=== PATIENT | female | born 1990 | race Caucasian/White ===

== ENCOUNTER → 2018-08-05 | Outpatient (CLI) | payer BC ==
[2018-08-05 11:47] LABS: Urine Bacteria NONE SEEN /hpf (None Seen); Urine Blood Negative /uL (Negative); Urine Mucus FEW (None Seen); Urine Specific Gravity 1.026 (1.001-1.035); Urine WBC 7 /hpf (0 - 5)
[2018-08-05 12:09] LABS: Cholesterol 226 mg/dL (< 200); HDL Cholesterol 37 mg/dL (40-59); LDL Cholesterol 159 mg/dL (< 100); Triglycerides 142 mg/dL (< 150)
== END | disposition home or self-care (01) ==
LOC: LAB 10:11
PROVIDERS: ATTEND Internal Medicine
DX: Z00.00 Encounter for general adult medical examination without abnormal findings (principal); R63.5 Abnormal weight gain
CPT/HCPCS: 36415; 80061; 81001; 84439; 84443

== ENCOUNTER → 2020-11-18 | Outpatient (CLI) | payer BC ==
[2020-11-18 10:24] LABS: Urine WBC None Seen /hpf (0 - 5)
[2020-11-18 10:26] LABS: Basophils # (auto) 0.1 10 ^3/uL (0-0.2); Basophils % (auto) 0.8 % (0.0-2.0); Eosinophils # (auto) 0.1 10 ^3/uL (0-0.8); Eosinophils % (auto) 1.2 % (0.0-7.0); Hematocrit 43.4 % (36.0-46.0); Hemoglobin 14.7 g/dL (12.2-16.2); Lymphocytes # (auto) 2.2 10 ^3/uL (0.4-5.4); Lymphocytes % (auto) 28.7 % (10.0-50.0); Mean Corpuscular Hemoglobin 30.5 pg (28.0-32.0); Mean Corpuscular Hgb Conc. 33.8 g/dL (32.0-36.0); Monocytes # (auto) 0.4 10 ^3/uL (0-1.3); Monocytes % (auto) 5.1 % (0.0-12.0); Neutrophils # (auto) 4.9 10 ^3/uL (1.6-8.6); Neutrophils % (auto) 64.2 % (37.0-80.0); Nucleated Red Blood Cells % 0.1 %; Red Blood Cells 4.83 10^6/uL (4.0-5.20); Red Cell Distribution Width 13.3 % (11.8-14.3); White Blood Cell 7.7 10^3/uL (4.4-10.8)
[2020-11-18 10:43] LABS: Urine Bacteria NONE SEEN /hpf (None Seen); Urine Blood Negative /uL (Negative); Urine Specific Gravity 1.019 (1.001-1.035)
[2020-11-18 10:59] LABS: Albumin 3.4 g/dL (3.4-5.0); Calcium 9.4 mg/dL (8.5-10.1); Potassium 4.6 mmol/L (3.5-5.1)
[2020-11-18 11:03] LABS: BUN/Creatinine Ratio 19.4; Bilirubin, Total 0.4 mg/dL (0.2-1.0); Total Protein 7.5 g/dL (6.4-8.2)
[2020-11-19 10:46] LABS: Prolactin 8.58 ng/mL (2.8-29.2)
[2020-11-19 10:47] LABS: Free T4 (Free Thyroxine) 1.29 ng/dL (0.89-1.76)
== END | disposition home or self-care (01) ==
LOC: LAB 10:13
PROVIDERS: ATTEND Internal Medicine
DX: N91.2 Amenorrhea, unspecified (principal)
CPT/HCPCS: 36415; 80053; 80061; 81001; 84146; 84439; 84443; 85025; 85652

== ENCOUNTER → 2021-01-17 | Outpatient (CLI) | payer BC | END | disposition home or self-care (01) | LOC: XYW 09:29 | PROVIDERS: ATTEND Internal Medicine | DX: I51.7 Cardiomegaly (principal); R00.2 Palpitations | CPT/HCPCS: 93306 ==

== ENCOUNTER → 2023-01-26 | Outpatient (CLI) | payer BC ==
[2023-01-27 07:06] LABS: RPR Non Reactive (Non Reactive)
[2023-01-27 22:06] LABS: Chlamydia Trachomatis, NAA Negative (Negative); Neisseria gonorrhoeae, NAA Negative (Negative)
== END | disposition home or self-care (01) ==
LOC: LAB 09:13
PROVIDERS: ATTEND Obstetrics & Gynecology
DX: Z01.419 Encounter for gynecological examination (general) (routine) without abnormal findings (principal)
CPT/HCPCS: 86592

== ENCOUNTER → 2023-06-15 | Outpatient (CLI) | payer BC ==
[2023-06-15 15:41] LABS: Basophils # (auto) 0 10 ^3/uL (0-0.2); Basophils % (auto) 0.4 % (0.0-2.0); Eosinophils # (auto) 0.1 10 ^3/uL (0-0.8); Eosinophils % (auto) 0.9 % (0.0-7.0); Hematocrit 41.9 % (36.0-46.0); Hemoglobin 14.5 g/dL (12.2-16.2); Lymphocytes # (auto) 3.1 10 ^3/uL (0.4-5.4); Lymphocytes % (auto) 35.1 % (10.0-50.0); Mean Corpuscular Hemoglobin 31.8 pg (28.0-32.0); Mean Corpuscular Hgb Conc. 34.6 g/dL (32.0-36.0); Mean Corpuscular Volume 91.8 fL (80.0-100.0); Monocytes # (auto) 0.5 10 ^3/uL (0-1.3); Monocytes % (auto) 6.2 % (0.0-12.0); Neutrophils # (auto) 5.1 10 ^3/uL (1.6-8.6); Neutrophils % (auto) 57.4 % (37.0-80.0); Red Blood Cells 4.56 10^6/uL (4.0-5.20); Red Cell Distribution Width 12.7 % (11.8-14.3); White Blood Cell 8.9 10^3/uL (4.4-10.8)
[2023-06-15 16:04] LABS: Follicle Stimulating Hormone 7.28 IU/L (SEE BELOW)
== END | disposition home or self-care (01) ==
LOC: LAB 15:19
PROVIDERS: ATTEND Obstetrics & Gynecology
DX: N91.2 Amenorrhea, unspecified (principal)
CPT/HCPCS: 36415; 82670; 83001; 83002; 83036; 84403; 84443; 85025

== ENCOUNTER → 2024-04-27 | Outpatient (CLI) | payer BC | END | disposition home or self-care (01) | LOC: LAB 09:27 | PROVIDERS: ATTEND Family Medicine | DX: D48.5 Neoplasm of uncertain behavior of skin (principal) ==

== ENCOUNTER 2024-11-22 12:35 | Outpatient (CLI) | payer BC ==
[2024-11-22 13:53] LABS: Hepatitis B Surface Antigen Negative (Negative)
[2024-11-23 07:06] LABS: Hepatitis B Core Total Antibod Negative (Negative)
== END 2024-11-22 17:00 | disposition home or self-care (01) ==
LOC: LAB 12:35
PROVIDERS: ATTEND Registered Nurse
DX: Z11.3 Encounter for screening for infections with a predominantly sexual mode of transmission (principal); Z20.2 Contact with and (suspected) exposure to infections with a predominantly sexual mode of transmission
CPT/HCPCS: 36415; 86695; 86696; 86706; 86780; 87340